=== PATIENT | female | born 1995 | race Caucasian/White ===

== ENCOUNTER 2016-10-01 20:52 | Emergency (ER) | payer BC, OTHER ==
[~2016-10-01] VITALS: Ht 170.2 cm; Wt 64.5 kg
[2016-10-01 21:02] VITALS: TEMP 37.3; Ht 170.2 cm; Wt 64.5 kg
[2016-10-01] MEDS ORDERED: AMOXICILLIN/CLAVULANATE TAB 875 MG TAB PO ONE (21:45)
[2016-10-01] MEDS ORDERED: BCPILLS PO (21:50)
[2016-10-01] MEDS ORDERED: PRED20TA PO (21:50)
[2016-10-01] MEDS ORDERED: AMOX875T PO (21:50)
[2016-10-01 21:57] VITALS: BP 108/69; PULSE 73; O2SAT 100
--- NOTE | 2016-10-01 22:25 | EMERGENCY ROOM VISIT NOTE ---
History Report prepared by Vika: Fredis Fisher Under the Supervision of: Dr. Kenneth Babin M.D. First contact with patient: 21:18 Chief Complaint: SORETHROAT Stated Complaint: THROAT SORENESS,TONSIL SWELLING- HX OF ABSCESS History of Present Illness The patient is a 21 year old female who presents to the Emergency Room with complaints of persistent throat pain for the past several days. The patient currently rates the pain 5/10 in severity, which did improve after taking Ibuprofen. Last night she also had a fever and was feeling nauseous. The patient has been dealing with recurrent tonsillitis for the past several months. Each infection improved after taking antibiotics but recurred when she finished them. She was treated with Clindamycin and Augmentin, and her last dose of Augmentin was 1.5 weeks ago. This morning after she woke up, she felt like she was developing a left-sided peritonsillar abscess. She had a peritonsillar abscess on the left that was drained in [place] four months ago. She has not been on steroids since the abscess was drained. She has an ENT appointment in two days. Source of History: patient Onset: several days ago Position: throat Symptom Intensity: 5/10 Timing: other (persistent) Modifying Factors (Relieving): ibuprofen Associated Symptoms: + fevers, + nausea Review of Systems See HPI for pertinent positives & negatives. A total of 10 systems reviewed and were otherwise negative. Past Medical & Surgical Medical Problems: (1) Peritonsillar abscess Family History No pertinent family history Social History Smoking Status: Never Smoker Housing Status: lives with roommate Occupation Status: [employer] Current/Historical Medications Scheduled Amoxicillin & Pot Clavulanate (Augmentin 875-125 mg), 875 MG PO BID Control Pills ( Control Pills), 1 TAB PO DAILY Prednisone (Prednisone), 2 TAB PO DAILY Allergies Coded Allergies: No Known Allergies (Unverified , 10/01/16) Physical Exam Vital Signs Date Time Temp Pulse Resp B/P Pulse Ox O2 Delivery O2 Flow Rate FiO2 10/01/16 21:57 73 20 108/69 100 10/01/16 21:07 98 Room Air 10/01/16 21:02 37.3 83 16 111/71 98 Room Air Physical Exam GENERAL: Patient is in no acute distress. HEENT: No acute trauma, normocephalic atraumatic, mucous membranes moist, no nasal congestion, no scleral icterus. Mild throat erythema with exudate, very subtle fullness to the left peritonsillar region compared to the right, no uvular edema or uvular shift, no airway issue. NECK: No stridor, bilateral anterior cervical lymphadenopathy, no meningismus, trachea is midline. LUNGS: Clear to auscultation bilaterally, no wheeze, no rhonchi, breath sounds equal. HEART: Without murmurs gallops or rubs, regular rate and rhythm. ABDOMEN: Soft, nontender, bowel sounds positive, no hernias, no peritonitis. EXTREMITIES: No cyanosis or edema, full range of motion of all the joints without pain or difficulty, no signs for acute trauma. NEUROLOGIC: Oriented x 3, no acute motor or sensory deficits, no focal weakness. SKIN: No rash, no jaundice, no diaphoresis. Medical Decision & Procedures Medications Administered Medications (Trade) Dose Ordered Sig/Micky Route Start Time Stop Time Status Last Admin Dose Admin Amoxicillin/ Clavulanate Potassium (Augmentin Tab) 875 mg ONE ONCE PO 10/01/16 21:45 10/01/16 21:46 DC 10/01/16 21:46 875 MG Prednisone (PredniSONE TAB) 40 mg NOW STAT PO 10/01/16 21:31 10/01/16 21:33 DC 10/01/16 21:45 40 MG ED Course 2119: The patient was evaluated in room A10. A complete history and physical exam was performed. 2129: Reevaluated the patient. Discussed results and discharge instructions: She verbalized understanding and agreement. The patient will be prepared for discharge. 2130: Prednisone 40 mg PO. 2144: Augmentin 875 mg PO. Medical Decision Differential diagnosis includes peritonsillar abscess, tonsillitis, uvular edema , pneumonia, pharyngeal edema. The patient presents with a sore throat, she has a history of tonsillitis and peritonsillar abscess. She has an appointment in 2 days to see ear nose and throat. The patient does have tonsillitis. I do not see any drainable peritonsillar abscess. The patient is being placed on Augmentin and prednisone. She was given doses here before discharge. She can return to this emergency room if things are worsening, otherwise she should see ENT as scheduled. Impression Primary Impression: Tonsillitis Scribe Attestation The scribe's documentation has been prepared under my direction and personally reviewed by me in its entirety. I confirm that the note above accurately reflects all work, treatment, procedures, and medical decision making performed by me. Departure Information Dispostion Home / Self-Care Prescriptions Prednisone (Prednisone) 20 Mg Tab 2 TAB PO DAILY for 5 Days, #10 TAB Prov: Kenneth Babin M.D. 10/01/16 Amoxicillin & Pot Clavulanate (Augmentin 875-125 mg) 1 Tab Tab 875 MG PO BID for 10 Days, #20 TAB Prov: Kenneth Babin M.D. 10/01/16 Referrals No Doctor, Assigned (PCP) Forms HOME CARE DOCUMENTATION FORM, IMPORTANT VISIT INFORMATION Patient Instructions My [facility] Additional Instructions augmentin 2x per day for 10 days start probiotic prednisone as directed see ENT this week as scheduled return if worsening as we discussed
== END 2016-10-01 21:58 | disposition home or self-care (01) ==
LOC: C.EDB 20:56 → C.EDA 21:58
DX: J03.90 Acute tonsillitis, unspecified (principal); Z79.3 Long term (current) use of hormonal contraceptives; Z79.899 Other long term (current) drug therapy